=== PATIENT | male | born 1950 | race African-American/Black ===

== ENCOUNTER 2017-03-17 13:02 | Inpatient (IN) | payer OTHER ==
[2017-03-17 18:16] VITALS: BMI 31.6
--- NOTE | 2017-03-17 19:30 | HP ---
CIWA Score - CIWA Score Nausea/Vomitin-Mild Nausea/No Vomiting Muscle Tremors: 4-Moderate,w/Arms Extend Anxiety: 4-Mod. Anxious/Guarded Agitation: 4-Moderately Restless Paroxysmal Sweats: 1-Minimal Palms Moist Orientation: 0-Oriented Tacttile Disturbances: 0-None Auditory Disturbances: 0-None Visual Disturbances: 0-None Headache: 1-Very Mild CIWA-Ar Total Score: 15 Admission ROS BHS - HPI Chief Complaint: withdrawal sx Allergies/Adverse Reactions: Allergies Allergy/AdvReac Type Severity Reaction Status Date / Time No Known Allergies Allergy Verified 03/17/17 19:27 History of Present Illness: 67 years old male with long history of alcohol nicotine dpendence has hypertension diabetes ii hyperlipidemia, bph and depression is admitted to detox Exam Limitations: No Limitations - Ebola screening Have you traveled outside of the country in the last 21 days: No Have you had contact with anyone from an Ebola affected area: No Have you been sick,other than usual withdrawal symptoms: No Do you have a fever: No - Review of Systems Constitutional: Chills, Changes in sleep, Weight Stable EENT: reports: No Symptoms Reported Respiratory: reports: No Symptoms reported Cardiac: reports: No Symptoms Reported GI: reports: Nausea, Poor Fluid Intake, Abdominal cramping : reports: Other (bph) Musculoskeletal: reports: Back Pain, Joint Pain, Muscle Weakness (legs) Integumentary: reports: No Symptoms Reported Neuro: reports: Tremors Endocrine: reports: No Symptoms Reported Hematology: reports: No Symptoms Reported Psychiatric: reports: Judgement Intact, Orientated x3, Depressed Other Systems: Reviewed and Negative Patient History - Patient Medical History Hx Anemia: No Hx Asthma: No Hx Chronic Obstructive Pulmonary Disease (COPD): No Hx Cancer: No Hx Cardiac Disorders: No Hx Congestive Heart Failure: No Hx Hypertension: Yes Hx Hypercholesterolemia: Yes Hx Pacemaker: No HX Cerebrovascular Accident: No Hx Seizures: No Hx Dementia: No Hx Diabetes: Yes Hx Gastrointestinal Disorders: No Hx Liver Disease: No Hx Genitourinary Disorders: Yes Hx Sexually Transmitted Disorders: No Hx Renal Disease (ESRD): No Hx Thyroid Disease: No Hx Human Immunodeficiency Virus (HIV): No Hx Hepatitis C: No Hx Depression: Yes Hx Suicide Attempt: No Hx Bipolar Disorder: No Hx Schizophrenia: No - Patient Surgical History Past Surgical History: Yes Hx Abdominal Surgery: Yes (right inguinal hernia 1978) Hx Orthopedic Surgery: Yes (left knee 1994) Other Surgical History: right wrist carpal tunnel 1989/uvula removed 2001 / left shoulder rota 2014 Anesthesia Reaction: No - PPD History Previous Implant?: Yes Documented Results: Negative w/o proof Implanted On Prior [facility] Admission?: No PPD to be Administered?: Yes - Smoking Cessation Smoking history: Current every day smoker Have you smoked in the past 12 months: Yes Aproximately how many cigarettes per day: 10 Cigars Per Day: 0 Hx Chewing Tobacco Use: No Initiated information on smoking cessation: Yes 'Breaking Loose' booklet given: 03/17/17 - Substance & Tx. History Hx Alcohol Use: Yes Hx Substance Use: No Substance Use Type: Alcohol Hx Substance Use Treatment: Yes - Substances Abused Alcohol Route: Oral Frequency: Daily Amount used: pint whisky Age of first use: 50 Date of Last Use: 03/17/17 Family Disease History - Family Disease History Family Disease History: Diabetes: Mother (), Heart Disease: Father ( ), Mother, Other: Mother Admission Physical Exam [facility] - Vital Signs Vital Signs: Vital Signs - 24 hr 03/17/17 18:11 Temperature 96.9 F L Pulse Rate 91 H Respiratory 18 Rate Blood Pressure 119/74 - Physical General Appearance: Yes: Appropriately Dressed, Mild Distress, Obese, Tremorous , Irritable, Sweating, Anxious HEENTM: Yes: Hearing grossly Normal, Normal ENT Inspection, Normocephalic, Normal Voice Respiratory: Yes: Chest Non-Tender, Lungs Clear, Normal Breath Sounds, No Respiratory Distress, No Accessory Muscle Use Neck: Yes: Supple, Trachea in good position Breast: Yes: Breasts Symetrical, Other (gynecomastia) Cardiology: Yes: Regular Rhythm, S1, S2, Tachycardia Abdominal: Yes: Non Tender, Soft Genitourinary: Yes: Within Normal Limits Back: Yes: Normal Inspection Musculoskeletal: Yes: Gait Steady (cane), Back pain, Muscle Pain, Muscle weakness Extremities: Yes: Normal Inspection, Normal Range of Motion, Non-Tender, Tremors Neurological: Yes: Alert, Motor Strength 5/5, Normal Response, Depressed Affect Integumentary: Yes: Warm Lymphatic: Yes: Within Normal Limits - Diagnostic (1) Alcohol dependence with uncomplicated withdrawal Current Visit: Yes Status: Acute (2) Chronic back pain Current Visit: Yes Status: Chronic Qualifiers: Back pain location: low back pain Back pain laterality: bilateral Sciatica presence: without sciatica Qualified Code(s): M54.5 - Low back pain; G89.29 - Other chronic pain (3) Hypertension Current Visit: Yes Status: Chronic Qualifiers: Hypertension type: essential hypertension Qualified Code(s): I10 - Essential (primary) hypertension (4) Diabetes mellitus type II, controlled Current Visit: Yes Status: Chronic Qualifiers: Diabetes mellitus complication status: without complication Diabetes mellitus intermodal dispatcher insulin use: without intermodal dispatcher use Qualified Code(s): E11.9 - Type 2 diabetes mellitus without complications (5) Hyperlipidemia Current Visit: Yes Status: Chronic Qualifiers: Hyperlipidemia type: pure hypercholesterolemia Qualified Code(s): E78.00 - Pure hypercholesterolemia, unspecified; E78.0 - Pure hypercholesterolemia (6) Nicotine dependence Current Visit: Yes Status: Acute Qualifiers: Nicotine product type: cigarettes Substance use status: in withdrawal Qualified Code(s): F17.213 - Nicotine dependence, cigarettes, with withdrawal (7) BPH (benign prostatic hyperplasia) Current Visit: Yes Status: Chronic Qualifiers: Prostatic enlargement morphology: non-nodular Lower urinary tract symptom presence: symptoms absent Qualified Code(s): N40.0 - Benign prostatic hyperplasia without lower urinary tract symptoms (8) Dry skin dermatitis Current Visit: Yes Status: Acute (9) Depression (emotion) Current Visit: Yes Status: Suspected Qualifiers: Depression Type: dysthymia Qualified Code(s): F34.1 - Dysthymic disorder (10) Use of cane as ambulatory aid Current Visit: Yes Status: Chronic (11) Gynecomastia Current Visit: Yes Status: Chronic Comment: x 3 years Cleared for Admission [facility] - Detox or Rehab [facility] Level of Care: Medically Managed Detox Regimen/Protocol: Librium [facility] Breath Alcohol Content Breath Alcohol Content: 0 Urine Drug Screen - Results Drug Screen Negative: Yes
[2017-03-17] MEDS ORDERED: ACETAMINOPHEN 325 MG TABLET (FP) PO PRN (19:38)
[2017-03-17] MEDS ORDERED: LOPERAMIDE HCL 2 MG CAPSULE PO PRN (19:38)
[2017-03-17] MEDS ORDERED: MAGNESIUM HYDROX 2400MG/30ML ORAL SUSPENSION 30 ML CUP PO PRN (19:38)
[2017-03-17] MEDS ORDERED: diphenhydrAMINE HCL 50 MG CAPSULE PO PRN (19:38)
[2017-03-17] MEDS ORDERED: NICOTINE POLACRILEX 2 MG GUM BUC PRN (19:38)
[2017-03-17] MEDS ORDERED: MAG HYDROX/AL HYDROX/SIMETH 30 ML UNIT-DOSE CUP PO PRN (19:38)
[2017-03-17] MEDS ORDERED: P-EPHED 60MG/TRIPROLIDI 2.5MG TABLET PO PRN (19:38)
[2017-03-17] MEDS ORDERED: guaiFENesin/D-METHORPHAN HB 10 ML UNIT-DOSE CUPS PO PRN (19:38)
[2017-03-17] MEDS ORDERED: chlordiazePOXIDE HCL 25 MG CAPSULE PO PRN (19:38)
[2017-03-17] MEDS ORDERED: hydrOXYzine PAMOATE 50 MG CAPSULE (FP) PO PRN (19:38)
[2017-03-17] MEDS ORDERED: MENTHOL/PHENOL 1 EACH UD MM PRN (19:38)
[2017-03-17] MEDS ORDERED: MAGNESIUM CITRATE 300 ML BOTTLE PO PRN (19:38)
[2017-03-17] MEDS ORDERED: NAPROXEN 500 MG TABLET (FP) PO PRN (19:42)
[2017-03-17] MEDS: chlordiazePOXIDE HCL 25 MG CAPSULE PO SCH (23:02)
[2017-03-17] MEDS: THIAMINE HCL 100 MG TABLET (FP) PO SCH (23:02)
[2017-03-17] MEDS: ATORVASTATIN CA 20 MG TABLET (FP) PO SCH (23:02)
[2017-03-17] MEDS: TAMSULOSIN HCL 0.4 MG CAP.ER.24H (FP) PO SCH (23:02)
[2017-03-17] MEDS: MINERAL OIL/PETROLAT/WATER TOPICAL CREAM 113 GM JAR TP SCH (23:07)
[2017-03-17 23:12] LABS: URINE APPEARANCE CLEAR; URINE BILIRUBIN NEGATIVE (NEGATIVE); URINE BLOOD NEGATIVE (NEGATIVE); URINE COLOR LTYELLOW; URINE GLUCOSE (UA) 1+ (NEGATIVE); URINE KETONE NEGATIVE (NEGATIVE); URINE LEUK ESTERASE NEGATIVE (NEGATIVE); URINE NITRITE NEGATIVE (NEGATIVE); URINE PROTEIN NEGATIVE (NEGATIVE); URINE UROBILINOGEN NEGATIVE E.U./dl (0.2-1.0)
[2017-03-18] MEDS: chlordiazePOXIDE HCL 25 MG CAPSULE PO SCH ×4 (05:50→22:25)
[2017-03-18] MEDS: metFORMIN HCL 500 MG TABLET (FP) PO SCH ×2 (06:22→17:34)
[2017-03-18 10:28] LABS: MCH 29.5 pg (25.7-33.7); MCHC 34.6 g/dl (32.0-35.9); MEAN CELL VOLUME 85.3 fl (80-96); MEAN PLT VOLUME 8.1 fl (7.5-11.1); PLATELET COUNT 194 K/MM3 (134-434); RDW 16.2 % (11.9-15.9); WHITE BLOOD COUNT 5.7 K/mm3 (4.0-10.0)
[2017-03-18 10:35] LABS: ALBUMIN 3.4 g/dl (3.4-5.0); ANION GAP 7 (8-16); CALCIUM 8.8 mg/dL (8.5-10.1); CO2 30 mmol/L (21-32); GLUCOSE,RANDOM 230 mg/dL (74-106)
[2017-03-18 10:38] LABS: ALK PHOS 53 U/L (45-117); BILIRUBIN,TOTAL 0.4 mg/dL (0.2-1.0); COCKROFT - GAULT 80.52; CREATININE 1.1 mg/dL (0.7-1.3); SGOT/AST 8 U/L (15-37); SGPT/ALT 18 U/L (12-78); TOT PROT 6.4 g/dl (6.4-8.2)
[2017-03-18] MEDS: PRENATAL VITAMINS W/ FOLIC ACID TABLET (FP) PO SCH (10:42)
[2017-03-18] MEDS: amLODIPine BESYLATE 10 MG TABLET (FP) PO SCH (10:42)
[2017-03-18] MEDS: ASPIRIN 81 MG CHEWABLE TABLETS PO SCH (10:42)
[2017-03-18] MEDS: NICOTINE 14 MG/24 HOURS TOPICAL PATCH TD SCH (10:43)
--- NOTE | 2017-03-18 11:43 | CONSULT ---
[facility] Psychiatric Consult - Data Date of interview: 03/18/17 Admission source: [facility] Identifying data: First admission to [facility] for this 67 y/o AA male seeking detox treatment on for alcohol dependence.Patient is single (living in a common-law relashionship),a father of eight,domiciled,unemployed and supported on SSI benefits. Substance Abuse History: - Smoking Cessation. Smoking history: Current every day smoker. Have you smoked in the past 12 months: Yes. Aproximately how many cigarettes per day: 10. Cigars Per Day: 0. Hx Chewing Tobacco Use: No. Initiated information on smoking cessation: Yes. 'Breaking Loose' booklet given : 03/17/17. - Substance & Tx. History. Hx Alcohol Use: Yes. Hx Substance Use : No. Substance Use Type: Alcohol. Hx Substance Use Treatment: Yes. - Substances Abused. Alcohol. Route: Oral. Frequency: Daily. Amount used: pint whisky. Age of first use: 50. Date of Last Use: 03/17/17. Confirmed by patient. Medical History: Hypertension,hypercholesterolemia,diabetes mellitus,benign prostatic hyperplasia (BPH),lower back pain and a history of orthosurgery (left knee in 1994,right wrist carpal tunnel in 1989,uvula removed in 2001,rotator cuff-left shoulder in 2014).Noted history of right inguinal herniorraphy in 1978. Psychiatric History: No history of psychiatric hospitalizations.Patient reports that he sees a psychiatrist at the [facility] in [facility] to address his addiction to gambling.Diagnosed with Pathological Gambling Disorder.Mr Crowder is not on psychotropic medications.Denies history of suicide attempts. Physical/Sexual Abuse/Trauma History: Patient denies. Additional Comment: Drug Screen is negative. Mental Status Exam - Mental Status Exam Alert and Oriented to: Time, Place, Person Cognitive Function: Good Patient Appearance: Well Groomed (short stature,obese) Mood: Anxious, Apprehensive, Hopeful Affect: Mood Congruent Patient Behavior: Fatigued, Appropriate, Cooperative Speech Pattern: Clear, Appropriate Voice Loudness: Normal Thought Process: Goal Oriented Thought Disorder: Not Present Hallucinations: Denies Suicidal Ideation: Denies Homicidal Ideation: Denies Insight/Judgement: Poor Sleep: Well Appetite: Good Gait/Station: Other (uses a cane for ambulation) Psychiatric Findings - Problem List ([place] 1, 2,3) (1) Alcohol dependence with uncomplicated withdrawal Current Visit: Yes Status: Acute (2) Nicotine dependence Current Visit: Yes Status: Acute Qualifiers: Nicotine product type: cigarettes (3) Pathological gambling Current Visit: Yes Status: Chronic (4) BPH (benign prostatic hyperplasia) Current Visit: Yes Status: Chronic Qualifiers: Prostatic enlargement morphology: non-nodular Lower urinary tract symptom presence: symptoms absent Qualified Code(s): N40.0 - Benign prostatic hyperplasia without lower urinary tract symptoms (5) Chronic back pain Current Visit: Yes Status: Chronic Qualifiers: Back pain location: low back pain Back pain laterality: bilateral Sciatica presence: without sciatica Qualified Code(s): M54.5 - Low back pain; G89.29 - Other chronic pain (6) Diabetes mellitus type II, controlled Current Visit: Yes Status: Chronic Qualifiers: Diabetes mellitus complication status: without complication 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 use: without usp use Qualified Code(s): E11.9 - Type 2 diabetes mellitus without complications (7) Hyperlipidemia Current Visit: Yes Status: Chronic Qualifiers: Hyperlipidemia type: pure hypercholesterolemia Qualified Code(s): E78.00 - Pure hypercholesterolemia, unspecified; E78.0 - Pure hypercholesterolemia (8) Hypertension Current Visit: Yes Status: Chronic Qualifiers: Hypertension type: essential hypertension Qualified Code(s): I10 - Essential (primary) hypertension (9) Use of cane as ambulatory aid Current Visit: Yes Status: Chronic - Initial Treatment Plan Initial Treatment Plan: Psychoeducation.Detoxification.Observation.
--- NOTE | 2017-03-18 13:13 | PN ---
S CIWA - CIWA Score Nausea/Vomitin Muscle Tremors: 3 Anxiety: 3 Agitation: 2 Paroxysmal Sweats: 1-Minimal Palms Moist Orientation: 0-Oriented Tacttile Disturbances: 1-Very Mild Itch/Numbness Auditory Disturbances: 1-Very Mild Visual Disturbances: 1-Very Mild Sensitivity Headache: 2-Mild CIWA-Ar Total Score: 17 BHS Progress Note (SOAP) Subjective: ALERT,IRRITABLE,ANXIOUS,INTERRUPTED SLEEP,TREMOR,PAIN IN THE BODY Objective: 03/18/17 13:11 Vital Signs Temperature 98.1 F 03/18/17 10:33 Pulse Rate 83 03/18/17 10:33 Respiratory Rate 20 03/18/17 10:33 Blood Pressure 121/72 03/18/17 10:33 O2 Sat by Pulse Oximetry (%) EKG NSR,NORMAL ECG Laboratory Last Values WBC 5.7 K/mm3 (4.0-10.0) 03/18/17 07:40 RBC 4.93 M/mm3 (4.00-5.60) 03/18/17 07:40 Hgb 14.6 GM/dL (11.7-16.9) 03/18/17 07:40 Hct 42.0 % (35.4-49) 03/18/17 07:40 MCV 85.3 fl (80-96) 03/18/17 07:40 MCHC 34.6 g/dl (32.0-35.9) 03/18/17 07:40 RDW 16.2 % (11.9-15.9) H 03/18/17 07:40 Plt Count 194 K/MM3 (134-434) 03/18/17 07:40 MPV 8.1 fl (7.5-11.1) 03/18/17 07:40 Sodium 138 mmol/L (136-145) 03/18/17 07:40 Potassium 4.2 mmol/L (3.5-5.1) 03/18/17 07:40 Chloride 101 mmol/L (98-107) 03/18/17 07:40 Carbon Dioxide 30 mmol/L (21-32) 03/18/17 07:40 Anion Gap 7 (8-16) L 03/18/17 07:40 BUN 13 mg/dL (7-18) 03/18/17 07:40 Creatinine 1.1 mg/dL (0.7-1.3) 03/18/17 07:40 Creat Clearance w eGFR > 60 (>60) 03/18/17 07:40 Random Glucose 230 mg/dL (74-106) H 03/18/17 07:40 Calcium 8.8 mg/dL (8.5-10.1) 03/18/17 07:40 Total Bilirubin 0.4 mg/dL (0.2-1.0) 03/18/17 07:40 AST 8 U/L (15-37) L 03/18/17 07:40 ALT 18 U/L (12-78) 03/18/17 07:40 Alkaline Phosphatase 53 U/L (45-117) 03/18/17 07:40 Total Protein 6.4 g/dl (6.4-8.2) 03/18/17 07:40 Albumin 3.4 g/dl (3.4-5.0) 03/18/17 07:40 Urine Color Ltyellow 03/17/17 22:13 Urine Appearance Clear 03/17/17 22:13 Urine pH 6.0 (5.0-8.0) 03/17/17 22:13 Urine Protein Negative (NEGATIVE) 03/17/17 22:13 Urine Glucose (UA) 1+ (NEGATIVE) H 03/17/17 22:13 Urine Ketones Negative (NEGATIVE) 03/17/17 22:13 Urine Blood Negative (NEGATIVE) 03/17/17 22:13 Urine Nitrite Negative (NEGATIVE) 03/17/17 22:13 Urine Bilirubin Negative (NEGATIVE) 03/17/17 22:13 Urine Urobilinogen Negative E.U./dl (0.2-1.0) 03/17/17 22:13 Ur Leukocyte Esterase Negative (NEGATIVE) 03/17/17 22:13 LABS PENDING Assessment: 03/18/17 13:12 WITHDRAWAL SYMPTOM Plan: CONTINUE DETOX,BGM MONITORING
[2017-03-18] MEDS: THIAMINE HCL 100 MG TABLET (FP) PO SCH (22:25)
[2017-03-18] MEDS: ATORVASTATIN CA 20 MG TABLET (FP) PO SCH (22:25)
[2017-03-18] MEDS: TAMSULOSIN HCL 0.4 MG CAP.ER.24H (FP) PO SCH (22:25)
[2017-03-18] MEDS: MINERAL OIL/PETROLAT/WATER TOPICAL CREAM 113 GM JAR TP SCH (22:27)
[2017-03-19] MEDS: chlordiazePOXIDE HCL 25 MG CAPSULE PO SCH ×4 (05:36→17:55)
[2017-03-19] MEDS: metFORMIN HCL 500 MG TABLET (FP) PO SCH ×2 (06:34→17:25)
--- NOTE | 2017-03-19 10:41 | PN ---
[facility] CIWA - CIWA Score Nausea/Vomitin Muscle Tremors: 3 Anxiety: 3 Agitation: 2 Paroxysmal Sweats: 1-Minimal Palms Moist Orientation: 0-Oriented Tacttile Disturbances: 1-Very Mild Itch/Numbness Auditory Disturbances: 1-Very Mild Visual Disturbances: 1-Very Mild Sensitivity Headache: 1-Very Mild CIWA-Ar Total Score: 16 S Progress Note (SOAP) Subjective: ALERT,IRRITABLE,ANXIOUS,INTERRUPTED SLEEP,TREMOR Objective: 03/19/17 10:39 Vital Signs Temperature 97.7 F 03/19/17 10:17 Pulse Rate 84 03/19/17 10:17 Respiratory Rate 16 03/19/17 10:17 Blood Pressure 116/76 03/19/17 10:17 O2 Sat by Pulse Oximetry (%) Laboratory Last Values WBC 5.7 K/mm3 (4.0-10.0) 03/18/17 07:40 RBC 4.93 M/mm3 (4.00-5.60) 03/18/17 07:40 Hgb 14.6 GM/dL (11.7-16.9) 03/18/17 07:40 Hct 42.0 % (35.4-49) 03/18/17 07:40 MCV 85.3 fl (80-96) 03/18/17 07:40 MCHC 34.6 g/dl (32.0-35.9) 03/18/17 07:40 RDW 16.2 % (11.9-15.9) H 03/18/17 07:40 Plt Count 194 K/MM3 (134-434) 03/18/17 07:40 MPV 8.1 fl (7.5-11.1) 03/18/17 07:40 Sodium 138 mmol/L (136-145) 03/18/17 07:40 Potassium 4.2 mmol/L (3.5-5.1) 03/18/17 07:40 Chloride 101 mmol/L (98-107) 03/18/17 07:40 Carbon Dioxide 30 mmol/L (21-32) 03/18/17 07:40 Anion Gap 7 (8-16) L 03/18/17 07:40 BUN 13 mg/dL (7-18) 03/18/17 07:40 Creatinine 1.1 mg/dL (0.7-1.3) 03/18/17 07:40 Creat Clearance w eGFR > 60 (>60) 03/18/17 07:40 POC Glucometer 188 UNITS (()) 03/18/17 16:22 Random Glucose 230 mg/dL (74-106) H 03/18/17 07:40 Calcium 8.8 mg/dL (8.5-10.1) 03/18/17 07:40 Total Bilirubin 0.4 mg/dL (0.2-1.0) 03/18/17 07:40 AST 8 U/L (15-37) L 03/18/17 07:40 ALT 18 U/L (12-78) 03/18/17 07:40 Alkaline Phosphatase 53 U/L (45-117) 03/18/17 07:40 Total Protein 6.4 g/dl (6.4-8.2) 03/18/17 07:40 Albumin 3.4 g/dl (3.4-5.0) 03/18/17 07:40 Urine Color Ltyellow 03/17/17 22:13 Urine Appearance Clear 03/17/17 22:13 Urine pH 6.0 (5.0-8.0) 03/17/17 22:13 Ur Specific [place] < 1.005 (1.005-1.025) L 03/17/17 22:13 Urine Protein Negative (NEGATIVE) 03/17/17 22:13 Urine Glucose (UA) 1+ (NEGATIVE) H 03/17/17 22:13 Urine Ketones Negative (NEGATIVE) 03/17/17 22:13 Urine Blood Negative (NEGATIVE) 03/17/17 22:13 Urine Nitrite Negative (NEGATIVE) 03/17/17 22:13 Urine Bilirubin Negative (NEGATIVE) 03/17/17 22:13 Urine Urobilinogen Negative E.U./dl (0.2-1.0) 03/17/17 22:13 Ur Leukocyte Esterase Negative (NEGATIVE) 03/17/17 22:13 RPR Titer Nonreactive (NONREACTIVE) 03/18/17 07:40 Assessment: 03/19/17 10:40 WITHDRAWAL SYMPTOM Plan: CONTINUE DETOX,NCS,BGM MONITORING,HbA1C,
[2017-03-19] MEDS: PRENATAL VITAMINS W/ FOLIC ACID TABLET (FP) PO SCH (10:52)
[2017-03-19] MEDS: ASPIRIN 81 MG CHEWABLE TABLETS PO SCH (10:52)
[2017-03-19] MEDS: amLODIPine BESYLATE 10 MG TABLET (FP) PO SCH (10:52)
[2017-03-19] MEDS: NICOTINE 14 MG/24 HOURS TOPICAL PATCH TD SCH (10:53)
--- NOTE | 2017-03-19 11:03 | PN ---
S Progress Note Note: ADDENDUM PATIENT IS TYPE 2 DM ON METFORMIN 500 MGS PO BID,BGM MONITORING
[2017-03-19] MEDS: ATORVASTATIN CA 20 MG TABLET (FP) PO SCH (22:39)
[2017-03-19] MEDS: chlordiazePOXIDE 5 MG CAPSULE PO SCH (22:39)
[2017-03-19] MEDS: THIAMINE HCL 100 MG TABLET (FP) PO SCH (22:39)
[2017-03-19] MEDS: TAMSULOSIN HCL 0.4 MG CAP.ER.24H (FP) PO SCH (22:39)
[2017-03-19] MEDS: MINERAL OIL/PETROLAT/WATER TOPICAL CREAM 113 GM JAR TP SCH (22:44)
[2017-03-20] MEDS: chlordiazePOXIDE 5 MG CAPSULE PO SCH ×3 (05:55→17:25)
[2017-03-20] MEDS: metFORMIN HCL 500 MG TABLET (FP) PO SCH ×2 (08:00→17:25)
[2017-03-20] MEDS: amLODIPine BESYLATE 10 MG TABLET (FP) PO SCH (10:33)
[2017-03-20] MEDS: PRENATAL VITAMINS W/ FOLIC ACID TABLET (FP) PO SCH (10:34)
[2017-03-20] MEDS: NICOTINE 14 MG/24 HOURS TOPICAL PATCH TD SCH (10:34)
[2017-03-20] MEDS: ASPIRIN 81 MG CHEWABLE TABLETS PO SCH (10:34)
--- NOTE | 2017-03-20 11:12 | PN ---
S Progress Note (SOAP) Subjective: anxious I need to know my CT scan result regarding my prostate and had my prostate cancer recurred Objective: 03/20/17 11:11 Vital Signs Temperature 97.9 F 03/20/17 09:43 Pulse Rate 87 03/20/17 09:43 Respiratory Rate 18 03/20/17 09:43 Blood Pressure 135/80 03/20/17 09:43 O2 Sat by Pulse Oximetry (%) awake/alert ambulating no acute distress Assessment: 03/20/17 11:11 mild withdrawal sx Plan: continue detox discuss result with his PMD and discuss aftercare d/c in am
--- NOTE | 2017-03-20 13:05 | EKG ---
Test Reason : Blood Pressure : / mmHG Vent. Rate : 077 BPM Atrial Rate : 077 BPM P-R Int : 164 ms QRS Dur : 096 ms QT Int : 336 ms P-R-T Axes : 060 -29 057 degrees QTc Int : 380 ms NORMAL SINUS RHYTHM NORMAL ECG NO PREVIOUS ECGS AVAILABLE Confirmed by ANSON LENTZ MD ([id number]) on 03/20/2017 1:05:04 PM Referred By: Confirmed By:ANSON LENTZ MD
[2017-03-20] MEDS: TAMSULOSIN HCL 0.4 MG CAP.ER.24H (FP) PO SCH (22:19)
[2017-03-20] MEDS: THIAMINE HCL 100 MG TABLET (FP) PO SCH (22:19)
[2017-03-20] MEDS: ATORVASTATIN CA 20 MG TABLET (FP) PO SCH (22:19)
[2017-03-20] MEDS: MINERAL OIL/PETROLAT/WATER TOPICAL CREAM 113 GM JAR TP SCH (22:19)
[2017-03-20] MEDS: chlordiazePOXIDE HCL 10 MG CAPSULE PO SCH (22:19)
[2017-03-21] MEDS: chlordiazePOXIDE HCL 10 MG CAPSULE PO SCH (07:10)
[2017-03-21] MEDS: metFORMIN HCL 500 MG TABLET (FP) PO SCH (07:10)
--- NOTE | 2017-03-21 09:06 | PN ---
S Progress Note (SOAP) Subjective: ALERT,NO COMPLAINT Objective: 03/21/17 09:02 Vital Signs Temperature 98.1 F 03/21/17 06:00 Pulse Rate 77 03/21/17 06:00 Respiratory Rate 18 03/21/17 06:00 Blood Pressure 105/76 03/21/17 06:00 O2 Sat by Pulse Oximetry (%) BGM 154 03/21/17 09:03 Assessment: 03/21/17 09:03 DETOX COMPLETED,NO WITHDRAWAL SYMPTOM Plan: DISCHARGE TODAY,FOLLOW UP WITH AFTER CARE PROGRAM ARRANGEMENT AND PMD FOR MEDICAL PROBLEM PATIENT HAS MEDICATIONS AT HOME
--- NOTE | 2017-03-21 09:10 | DS ---
[facility] Detox Discharge Summary Admission Date: 03/17/17 Discharge Date: 03/21/17 - History Present History: Alcohol Dependence Additional Comments: FOLLOW UP WITH AFTER [facility] PROGRAM ARRANGEMENT AND PMD FOR MEDICAL PROBLEM Pertinent Past History: HYPERTENSION HYPERLIPIDEMIA NICOTINE DEPENDENCE BPH DERMATITIS DEPRESSION - Physical Exam Results Vital Signs: Vital Signs Temperature 98.1 F 03/21/17 06:00 Pulse Rate 77 03/21/17 06:00 Respiratory Rate 18 03/21/17 06:00 Blood Pressure 105/76 03/21/17 06:00 O2 Sat by Pulse Oximetry (%) Pertinent Admission Physical Exam Findings: WITHDRAWAL SYMPTOM - Treatment Hospital Course: Detox Protocol Followed, Detoxed Safely, Responded well, Discharged Condition Good, Rehab Referral Accepted Patient has Accepted a Rehab Referral to: [facility] - Medication Discharge Medications: Ambulatory Orders Amlodipine Besylate [Norvasc -] 10 mg PO DAILY 03/17/17 Aspirin [ASA -] 81 mg PO DAILY 03/17/17 Metformin HCl [Glucophage -] 500 mg PO BID 03/17/17 Simvastatin [Zocor -] 20 mg PO HS 03/17/17 - AMA Did Patient Leave Against Medical Advice: No
[2017-03-21 09:48] VITALS: BP 114/78; PULSE 87; TEMP 97.7
[2017-03-21] MEDS: PRENATAL VITAMINS W/ FOLIC ACID TABLET (FP) PO SCH (09:49)
[2017-03-21] MEDS: ASPIRIN 81 MG CHEWABLE TABLETS PO SCH (09:50)
[2017-03-21] MEDS: amLODIPine BESYLATE 10 MG TABLET (FP) PO SCH (09:50)
== END 2017-03-21 11:07 | disposition home or self-care (01) | DRG 897 ==
LOC: YASAS 13:02 → Y6N 20:23
PROVIDERS: ADMIT Internal Medicine Addiction Medicine; ATTEND Internal Medicine Addiction Medicine
PROC: HZ2ZZZZ Detoxification Services for Substance Abuse Treatment (ICD-10-PCS; principal; 2017-03-17)
DX: F19.230 Other psychoactive substance dependence with withdrawal, uncomplicated (principal); F10.230 Alcohol dependence with withdrawal, uncomplicated; F17.210 Nicotine dependence, cigarettes, uncomplicated; F32.9 Major depressive disorder, single episode, unspecified; F63.0 Pathological gambling; I10 Essential (primary) hypertension; E78.5 Hyperlipidemia, unspecified; E11.9 Type 2 diabetes mellitus without complications; N40.0 Benign prostatic hyperplasia without lower urinary tract symptoms; L85.3 Xerosis cutis; R26.2 Difficulty in walking, not elsewhere classified; M54.5 Low back pain; G89.29 Other chronic pain; E66.9 Obesity, unspecified; Z68.31 Body mass index [BMI] 31.0-31.9, adult; N62 Hypertrophy of breast
CPT/HCPCS: 36415; 80053; 81003; 83036; 85027; 86593; 93005; 93010